=== PATIENT | female | born 1960 | race Caucasian/White ===

== ENCOUNTER → 2021-03-14 09:03 | Outpatient (CLI) | payer OTHER, SELFPAY ==
[2021-03-14 10:22] LABS: COVID19 -Nasal RAPID Negative (Negative)
== END ==
PROVIDERS: PCP Internal Medicine; Visit Provider Surgery
DX: Z20.822 Contact with and (suspected) exposure to COVID-19 (principal)
CPT/HCPCS: 87635; C9803

== ENCOUNTER 2021-03-17 07:31 | Day surgery (SDC) | payer OTHER, SELFPAY ==
--- NOTE | 2021-03-17 | PATH_ITS ---
[facility] Accession Number: [id number] . 01 Material submitted: . gastrointestinal site - GASTRIC BIOPSY . 01 Clinical history: . SDC . 02 Diagnosis: Gastric Biopsy: Portions of gastric antral mucosa with mild chronic inflammation. Negative for Helicobacter organisms by immunohistochemistry. Negative for intestinal metaplasia. Negative for dysplasia or malignancy. MRV 03/21/2021 1336 Local . 02 Electronically signed: . Marilia Tao MD, Pathologist NPI- [id number] . 01 Gross description: . GASTRIC BIOPSY: Received in formalin are 2 fragment(s) of khalil, soft tissue measuring 0.5 x 0.3 x 0.2 cm to 0.3 x 0.3 x 0.2 cm submitted entirely in 1 cassette(s) /SOURAV 03/18/2021 0914 Local . 02 Microscopic: . An immunohistochemical stain was performed to evaluate for Helicobacter organisms and is negative. The control stain showed appropriate reactivity. . * This test was developed and its performance characteristics determined by [facility]. It has not been cleared or approved by the U.S. Food and Drug Administration. The FDA has determined that such clearance or approval is not necessary. This test is used for clinical purposes. It should not be regarded as investigational or for research. . 02 Pathologist provided ICD-10: E61.1, K29.70 . 02 CPT . 591894, Q44507 Performed at: 01 [facility] [address], [place], [place] [id number] MD Eric Abreu MD Phone: [phone] Performed at: 02 [facility] [place] [address] [place], [place] [id number] MD Misti Dia MD Phone: [phone]
--- NOTE | 2021-03-17 07:43 | PM.HP.1 ---
History of Present Illness History of Present Illness Date Patient Seen: 03/17/21 Time Patient Seen: 07:43 Chief complaint: SDC Narrative: 61-year-old woman here for esophagoduodenoscopy and colonoscopy for a diagnosis of iron deficiency anemia. Please see history and physical from February 2021 for further detail. There has been no interval change in health since she was last seen. Patient History Medical History Diabetes Hx of fracture of radius Migraines Surgical History Hx of breast biopsy Hx of eye surgery Hx of hysterectomy Hx of thumb surgery Family & Social History Family History Father Hypertension Heart disease Mother Stroke Breast cancer Social History: household members spouse,children Tobacco & Substance use: Smoking Status Never smoker alcohol intake current Meds Home Medications and Allergies Home Medications Medication Instructions Recorded Confirmed Type dulaglutide [Trulicity] 1.5 mg SUBCUT QWEEK 11/05/20 02/13/21 History lisinopril 10 mg PO DAILY 11/05/20 02/13/21 History meloxicam 15 mg PO DAILY 11/05/20 02/13/21 History metformin 500 mg PO DAILY 11/05/20 02/13/21 History omeprazole 20 mg PO DAILY 11/05/20 02/13/21 History topiramate 100 mg PO DAILY 11/05/20 02/13/21 History venlafaxine 150 mg PO DAILY 11/05/20 02/13/21 History ferrous sulfate 325 mg PO DAILY #90 tab 12/03/20 02/13/21 Rx B2-magnesium cit,oxid-feverfew 1 tab PO DAILY 01/14/21 02/13/21 History [MigreLief] ferrous gluconate 324 mg PO DAILY #90 tab 01/14/21 02/13/21 Rx melatonin 5 mg capsule mg PO 02/13/21 02/13/21 History Allergies Allergy/AdvReac Type Severity Reaction Status Date / Time codeine Allergy Unknown Verified 03/17/21 07:44 Review of Systems Review of Systems ROS: Yes All systems reviewed with the patient and are negative except as otherwise documented Exam Narrative Exam Narrative: GENERAL-well developed adult female, no acute distress HEENT-no scleral icterus, hearing intact NECK-no JVD, trachea midline CVS- regular rate, no peripheral edema RESP-unlabored respiratory effort, no audible wheezing GI-soft, nontender nondistended MSK-no cyanosis or clubbing, extremities without deformity SKIN-warm, dry NEURO-alert and oriented, no focal deficits PYSCH-Appropriate mood and affect Assessment & Plan Assessment & Plan narrative: 61-year-old woman with iron deficiency anemia referred by Hematology for esophagoduodenoscopy and colonoscopy. -esophagoduodenoscopy and colonoscopy We discussed the role of endoscopy in evaluation of potential causes of anemia. Technical details of the procedures were discussed with the patient. Procedural risks including bleeding, infection, missed diagnosis, intestinal perforation, need for major surgery, need for further procedure were discussed. Her questions have been answered and she is in agreement with this plan.
[2021-03-17 07:47] VITALS: BP 168/87; PULSE 76; RESP 14; TEMP 36.1; O2SAT 98; BMI 44.6
[2021-03-17] MEDS: LACTATED RINGERS 1,000 ML 200 ML IV (07:47)
[2021-03-17] MEDS: LIDOCAINE 4% SOLN 50 ML 20 ML TOP (08:20)
[2021-03-17] MEDS: MIDAZOLAM 5 MG/5 ML VIAL IV (08:25)
[2021-03-17] MEDS: fentaNYL 250 MCG/5 ML INJ IV (08:25)
[2021-03-17 08:40] VITALS: BP 162/4; PULSE 94; RESP 14; TEMP 36.2; O2SAT 95
--- NOTE | 2021-03-17 08:41 | PM.OP.ENDO ---
Operative Date/Time/Diagnoses Date of procedure: 03/17/21 Time of procedure: 08:42 Pre-op diagnosis: Anemia Post-op diagnosis: same Procedure & Clinicians Study performed: Esophagoduodenoscopy, incomplete colonoscopy Same procedure as scheduled: Yes Indications: Anemia Surgeon: Marcus Lafleur Procedure Notes Procedure in detail: Medications: Conscious sedation using 6mg IV midazolam and 100mcg IV of fentanyl The history and physical was performed/updated and the patient is ASA class is 2. The procedure was discussed in detail with the patient. Potential risks complications including infection, bleeding, missed diagnosis, perforation, need for surgery, and were explained. Their questions were answered and informed consent was obtained. Patient was brought to the procedure room and placed standard monitoring equipment. The patient's vital signs were monitored continuously throughout the entire procedure. Prior to starting time-out was performed. The patient was placed in the left lateral recumbent position. Procedural sedation was administered. Patient placed in left lateral decubitus position. Time out was performed. Procedural sedation was administered with Versed and Fentanyl. A bite block was placed. the scope was inserted into the mouth and advanced through the esophagus and into the stomach. The stomach was notable for gastritis there was a distal gastric ulcer non bleeding. Biopsy of the stomach was performed with forceps. The pylorus was intubated and the duodenum was normal to the 2nd portion. The scope was retroflexed within the stomach and there was a small hiatal hernia. The scope was withdrawn into the esophagus the Z line was seen at 40 cm from the incisions. There was no Garcia's esophagitis or masses or strictures. Stomach was desufflated and scope removed. Patient tolerated procedure well. Examination began with a thorough inspection of the perianal area there was no evidence of fissures, fistulae, external hemorrhoids or cutaneous malignancy. The colonoscopy scope was then placed into the anal canal and was forward. The sigmoid colon was entered. The sigmoid colon was especially tortuous. Multiple attempts were made at repositioning, stiffner, irrigation but despite these measures I could not safetly advance forward. the colonoscopy was aborted. The patient tolerated the procedure well. They will be discharged once criteria are met. The prep was of fair quality. The sedation time was 26 minutes. Specimen(s): other (gastric) Complications: none Impression: gastritis, incomplete colonoscopy Post-procedure Plan for aftercare: barium enema, increase omeprazole Disposition: same day surgery
[2021-03-17 08:45] VITALS: BP 154/91; PULSE 91; RESP 14; O2SAT 95
[2021-03-17 08:50] VITALS: BP 148/95; PULSE 84; RESP 14; O2SAT 96
[2021-03-17 08:55] VITALS: BP 133/88; PULSE 82; RESP 13; O2SAT 97
== END 2021-03-17 09:15 | disposition home or self-care (01) ==
PROVIDERS: PCP Internal Medicine; Referring Provider Surgery; Visit Provider Surgery
PROC: 0DJ08ZZ Inspection of Upper Intestinal Tract, Via Natural or Artificial Opening Endoscopic (ICD-10-PCS; CPT 43235; principal; 2021-03-17 07:45)
PROC: 0DJD8ZZ Inspection of Lower Intestinal Tract, Via Natural or Artificial Opening Endoscopic (ICD-10-PCS; CPT 45378; 2021-03-17 07:45)
DX: D50.9 Iron deficiency anemia, unspecified (principal); Z53.09 Procedure and treatment not carried out because of other contraindication; E11.9 Type 2 diabetes mellitus without complications; G43.909 Migraine, unspecified, not intractable, without status migrainosus; K44.9 Diaphragmatic hernia without obstruction or gangrene; K29.50 Unspecified chronic gastritis without bleeding
CPT/HCPCS: 43239; 45378; 99152; J2250; J3010

== ENCOUNTER → 2021-05-07 12:48 | Outpatient (CLI) | payer OTHER, SELFPAY ==
--- NOTE | 2021-05-07 12:49 | DI.RAD.S_ITS ---
PROCEDURE: FL BARIUM ENEMA INDICATIONS: incomplete colonoscopy COMPARISON: None. 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 No suspicious abdominal calcifications. Visualized solid organ contours appear normal in size. No suspicious bony lesions. Colon: There is adequate opacification of the entire colon. Air-contrast images of the cecum are suboptimal secondary to sequestration of dense barium contrast in the cecum. Ileocecal valve is incompetent. There is an area of persistent colonic narrowing at the distal left colon/sigmoid colon junction which could represent persistent spasm or neoplastic process including extrinsic mass. No colonic fistulae or perforations. IMPRESSION: Area of persistent narrowing involving the distal left colon/proximal sigmoid colon junction. Finding could be secondary to persistent spasm versus neoplastic process including extrinsic mass. Recommend correlation with colonoscopy findings and CT scan of the abdomen/pelvis for additional evaluation. Dictated by: Cecilia Loving MD, PhD on 05/07/2021 at 14:35 Approved by: Cecilia Loving MD, PhD on 05/07/2021 at 14:44
== END ==
PROVIDERS: PCP Internal Medicine; Referring Provider Surgery; Visit Provider Surgery
DX: D50.9 Iron deficiency anemia, unspecified (principal); Z12.11 Encounter for screening for malignant neoplasm of colon
CPT/HCPCS: 74280

== ENCOUNTER 2023-09-08 16:08 | Emergency (ER) | payer OTHER, SELFPAY ==
[2023-09-08 16:26] VITALS: BP 134/84; PULSE 88; RESP 16; TEMP 36.3; O2SAT 99; BMI 42.7
--- NOTE | 2023-09-08 16:43 | PC.NURSE ---
Addendum entered by Bren Mclean R.N. 09/08/23 16:46: Pt clarified that her back pain actually started after she woke up Wednesday morning. Pt states I don't know that it happened at work because I didn't have it until after I slept and woke up. Declines to fill out L/I paperwork at this time. 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 Tried lidocaine patch, flexeril, icy hot and OTC pain relievers.
--- NOTE | 2023-09-08 17:38 | ED.BACK ---
HPI - Back Pain/Injury General Chief Complaint: Back Pain/Injury Stated Complaint: mid level back pain Time Seen by Provider: 09/08/23 17:24 Source: patient History of Present Illness HPI Narrative: Patient is a 63-year-old female with type 2 diabetes presenting for evaluation of right-sided mid to low level back pain x4 days. She states that she noticed after waking up on Wednesday evening. She works night shifts. 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 She reports that she has pain in her back with most movements but the worst is from sitting to standing or standing to sitting. She denies any lower extremity numbness or any numbness of her genitals. She denies any fevers. She denies any anticoagulant use. She reports she does take a baby aspirin for preventative purposes. She states that her symptoms seem to be getting worse. She states she tried to take the cyclobenzaprine yesterday but it did not seem to help loosen things up. She reports that her blood sugars have been between 254301 recently. She denies headache. She denies having to do significant lifting at work. Related Data Home Medications Medication Instructions Recorded Confirmed dulaglutide 1.5 mg/0.5 mL 1.5 mg SUBCUT QWEEK 11/05/20 03/17/21 subcutaneous pen injector (Trulicity) lisinopril 10 mg tablet 10 mg PO DAILY 11/05/20 03/17/21 meloxicam 15 mg tablet 15 mg PO DAILY PRN Pain (Scale 11/05/20 03/17/21 Score 1-3) metformin 500 mg tablet 500 mg PO DAILY 11/05/20 03/17/21 topiramate 100 mg tablet 100 mg PO DAILY 11/05/20 03/17/21 venlafaxine 150 mg 150 mg PO DAILY 11/05/20 03/17/21 capsule,extended release 24 hr riboflavin 200 mg-magnesium 1 tab PO DAILY 01/14/21 03/17/21 citrate,oxide 180 mg-feverfew 50 mg tablet (MigreLief) Previous Rx's Medication Instructions Recorded ferrous gluconate 324 mg (37.5 mg 324 mg PO DAILY #90 tabs 01/14/21 iron) tablet omeprazole 40 mg capsule,delayed 40 mg PO BID #60 caps 03/17/21 release baclofen 5 mg tablet 5 mg PO TID #20 tabs 11/29/23 Allergies Allergy/AdvReac Type Severity Reaction Status Date / Time codeine Allergy Unknown Verified 03/17/21 07:44 Review of Systems Review of Systems Narrative: See HPI Patient History Medical History Hx of fracture of radius Migraines Diabetes Surgical History Hx of thumb surgery Hx of breast biopsy Hx of hysterectomy Hx of eye surgery Family History Father Hypertension Heart disease Mother Stroke Breast cancer Social History marital status: household members: spouse and children Smoking Status: Never smoker alcohol intake: current substance use type: marijuana Smoking Status: Never smoker alcohol intake frequency: holidays/special occasions only Substance Use Type: marijuana Exam Initial Vital Signs Initial Vital Signs: Vital Signs Temperature 97.4 F L 09/08/23 16:26 Pulse Rate 88 09/08/23 16:26 Respiratory Rate 16 09/08/23 16:26 Blood Pressure 134/84 09/08/23 16:26 Pulse Oximetry 99 09/08/23 16:26 Oxygen Delivery Method Room Air 09/08/23 16:26 GENERAL: 63 year old patient appears stated age. Well-developed patient, in no acute distress. HEAD: Atraumatic. Normocephalic. EYES: Pupils equal round No scleral icterus. No injection or drainage. NECK: Trachea midline, supple RESPIRATORY: Speaking comfortably normal tone of voice without any increased work of breathing. EXTREMITIES: No edema or joint tenderness. Patient demonstrates 5/5 knee flexion extension strength bilaterally, 5/5 hip flexion strength bilaterally BACK: Tender on the right paraspinal side from level of roughly around T7 down to L4, no midline spinal tenderness of cervical, thoracic lumbar or sacral spine patient cannot tolerate testing bilaterally or bending NEURO: AOx3. DTR patellar 1+ bilaterally, SKIN: No rash or erythema of visible areas Course Orders Ordered: Discontinued Medications Baclofen (Baclofen 10 Mg Tablet) 10 mg PO NOW ONE Stop: 09/08/23 17:37 Last Admin: 09/08/23 17:49 Dose: 10 mg Ketorolac Tromethamine (Ketorolac 30 Mg/Ml Vial) 30 mg IM NOW ONE Stop: 09/08/23 17:37 Last Admin: 09/08/23 17:46 Dose: 30 mg Vital Signs Vital signs: Vital Signs - 8 hr 09/08/23 16:26 Temperature 97.4 F L Pulse Rate 88 Respiratory Rate 16 Blood Pressure 134/84 Pulse Oximetry 99 Oxygen Delivery Method Room Air MDM - Back Pain/Injury MDM Narrative Medical decision making narrative: Patient is a 63-year-old female presenting for evaluation of right-sided back pain for 4 days. She denies any numbness of her lower extremities for nodule area, denies anticoagulant use or fever. Her symptoms are consistent with spasm of her right lumbar side which should resolve with rest, gentle stretching and heat. Her blood pressure was stable within normal limits today. She denies any numbness of her lower extremities or genital region She was given Toradol and baclofen to help her pain in the ER. After medication, she reports her symptoms are significantly improved. Her daughter will drive her home. Recommend treatment with ibuprofen, muscle relaxers and lidocaine patch at home. Advised patient to follow-up further evaluation if she develops new onset worsening numbness of her legs, return for ER evaluation if she should develop any numbness of her genital region, incontinence, fever, weakness concerning signs or symptoms. Multiple etiologies for patient's symptoms considered including, but not limited to: Muscle spasm, radiculopathy, AAA, spinal abscess, epidural hematoma Patient's symptoms improved over duration of stay with above-stated therapies. Findings and discharge diagnosis discussed with patient/family followed by verbalization of understanding Return precautions discussed with patient/family whom verbalize understanding of diagnosis and plan Discharge Plan Departure Patient Disposition: Home Clinical Impression: Lumbar strain Qualifiers: Encounter type: initial encounter Qualified Code(s): S39.012A - Strain of muscle, fascia and tendon of lower back, initial encounter Activity Restrictions/Additional Instructions: Thank you for coming in today for care. You were diagnosed today with lumbar strain. Recommend rest, gentle stretching, heat and lidocaine patches and Tylenol and ibuprofen as needed. I provided a muscle relaxer prescription to help your muscles relax. Please do not take this prior to driving or doing sensitive activity. Do not drink alcohol with this. I recommend continued follow-up with your primary care provider. If your symptoms are not improving, you may benefit from physical therapy. Please return for further evaluation in ER if you should develop any incontinence, genital numbness, fever or significant worsening of pain or other concerning symptoms. Prescriptions: New baclofen 5 mg tablet 5 mg PO TID Qty: 20 0RF No Action metformin 500 mg Tablet 500 mg PO DAILY meloxicam 15 mg Tablet 15 mg PO DAILY PRN (Reason: Pain (Scale Score 1-3)) venlafaxine 150 mg Capsule,Extended Release 24hr 150 mg PO DAILY lisinopril 10 mg Tablet 10 mg PO DAILY topiramate 100 mg Tablet 100 mg PO DAILY Trulicity 1.5 mg/0.5 mL Pen Injector 1.5 mg SUBCUT QWEEK MigreLief 200-180-50 mg Tablet 1 tab PO DAILY ferrous gluconate 324 mg (37.5 mg iron) Tablet 324 mg PO DAILY Qty: 90 1RF omeprazole 40 mg capsule,delayed release(DR/EC) 40 mg PO BID Qty: 60 0RF Referrals: Janet Robert MD [Primary Care Provider] - Stand Alone Forms: Patient Portal/API
[2023-09-08] MEDS: KETOROLAC 30 MG/ML VIAL IM (17:46)
[2023-09-08] MEDS: BACLOFEN 10 MG TABLET PO (17:49)
[2023-09-08 19:13] VITALS: BP 122/73; PULSE 81; RESP 16; TEMP 37.1; O2SAT 97
== END 2023-09-08 19:00 | disposition home or self-care (01) ==
PROVIDERS: Emergency Provider Physician Assistant; PCP Internal Medicine
DX: S39.012A Strain of muscle, fascia and tendon of lower back, initial encounter (principal); X58.XXXA Exposure to other specified factors, initial encounter
CPT/HCPCS: 96372; 99283; J1885